=== PATIENT | male | born 1960 | race Caucasian/White ===

== ENCOUNTER 2020-10-18 10:02 | Inpatient (IN) ==
[2020-10-18] MEDS ORDERED: Isovue-370 500 ML BOTTLE IVP ONE (10:55)
[2020-10-18] MEDS ORDERED: Ondansetron 4 MG/2 ML VIAL IVP ONE (10:57)
[2020-10-18 11:23] LABS: Basophils # 0.1 K/mcL (0.0-0.2); Basophils % 0.5 %; Eosinophils # 0.3 K/mcL (0.0-0.6); Eosinophils % 2.2 %; Hematocrit 47.8 % (37.5-50.1); Hemoglobin 15.5 g/dL (12.9-16.9); Immature Granulocytes % 0.4 % (0-4); Lymphocytes # 2.9 K/mcL (0.6-4.6); Lymphocytes % 25.7 %; Mean Corpuscular HGB Conc 32.4 g/dL (31.6-35.5); Mean Corpuscular Hemoglobin 31.8 pg (28.0-33.3); Mean Corpuscular Volume 98.2 fL (83.0-100.0); Mean Platelet Volume 10.2 fL (9.4-12.4); Monocytes # 1.1 K/mcL (0.0-1.3); Neutrophils # 6.9 K/mcL (1.6-8.9); Platelet Count 280 K/mcL (140-400); Red Blood Count 4.87 M/mcL (4.19-5.50); Red Cell Distribution Width 12.9 % (11.5-14.5); Segmented Neutrophils % 61.2 %; White Blood Count 11.2 K/mcL (4.3-11.1)
[2020-10-18 11:33] LABS: BUN/Creatinine Ratio 18 (6-26); Blood Urea Nitrogen 18 mg/dL (6-20); Calcium 9.9 mg/dL (8.6-10.3); Carbon Dioxide 24 mEq/L (23-29); Chloride 98 mEq/L (98-107); Glucose 111 mg/dL (70-105); Osmolality,Calculated 279 (280-300); Potassium 3.1 mEq/L (3.5-5.1); Sodium 133 mEq/L (136-145); Troponin I < 0.03 ng/mL (< 0.04); eGFR For African Americans > 60 (> 60); eGFR For Non-African Americans > 60 (> 60)
[2020-10-18] MEDS ORDERED: Potassium Chloride Elixir 20 MEQ/15 ML UDC PO ONE (11:56)
[2020-10-18 13:47] LABS: INR 1.2; Prothrombin Time 13.5 Seconds (9.4-12.1)
[2020-10-18 13:50] LABS: Activated Partial Thrombo Time 27.8 Seconds (26.0-36.0)
[2020-10-18] MEDS ORDERED: Ringers Solution, Lactated 1,000 ML IVC SCH (14:00)
[2020-10-18 14:09] LABS: Alanine Aminotransferase 78 Units/L (7-52); Albumin 4.5 g/dL (3.5-5.7); Albumin/Globulin Ratio 1.2 (1.1-2.2); Alkaline Phosphatase 138 Units/L (34-104); Amylase 23 Units/L (29-103); Aspartate Amino Transferase 69 Units/L (13-39); Bilirubin,Direct 0.8 mg/dL (0.0-0.2); Bilirubin,Indirect 0.9 mg/dL (0.0-1.0); Bilirubin,Total 1.7 mg/dL (0.3-1.0); Globulin 3.8 g/dL (2.4-3.5); Lipase 20 Units/L (11-82); Total Protein 8.3 g/dL (6.4-8.9)
[2020-10-18] MEDS ORDERED: Ketorolac 15 MG/ML VIAL IVP PRN (14:17)
[2020-10-18] MEDS ORDERED: Ondansetron 4 MG/2 ML VIAL IVP PRN ×2 (14:17→15:16)
[2020-10-18] MEDS ORDERED: CefOXitin 1,000 MG VIAL ONE (14:42)
[2020-10-18] MEDS ORDERED: Isovue-300 50ML VIAL ONE (14:42)
[2020-10-18] MEDS ORDERED: *HR* Midazolam HCl 2 MG/2 ML VIAL ONE (14:57)
[2020-10-18] MEDS ORDERED: *HR* Propofol 200 MG/20 ML VIAL IVP ONE ×2 (14:57→15:00)
[2020-10-18] MEDS ORDERED: *HR* FentaNYL (PF) 100 MCG/2 ML VIAL ONE ×4 (14:57→15:28)
[2020-10-18] MEDS ORDERED: *HR* Rocuronium Bromide 50 MG/5 ML VIAL ONE (14:59)
[2020-10-18] MEDS ORDERED: Lidocaine HCL 4 ML Topical Solution (Laryng-O-Jet Kit Sterile Pak) TP ONE (14:59)
[2020-10-18] MEDS ORDERED: Lidocaine -MPF 2% 2 ML VIAL ONE (14:59)
[2020-10-18] MEDS ORDERED: Ondansetron 4 MG/2 ML VIAL ONE (14:59)
[2020-10-18] MEDS ORDERED: Ipratropium/Albuterol Neb 3 ML IH SCH ×2 (15:00→23:00)
[2020-10-18] MEDS ORDERED: *HR* HYDROmorphone (PF) 1 MG/ML SYRINGE IVP PRN (15:16)
[2020-10-18] MEDS ORDERED: Nitroglycerin 0.4 MG TAB.SUBL SL PRN (15:16)
[2020-10-18] MEDS ORDERED: Albuterol 2.5 MG/3 ML NEBULIZER IH PRN (15:16)
[2020-10-18] MEDS ORDERED: *HR* FentaNYL (PF) 100 MCG/2 ML VIAL IVP PRN (15:16)
[2020-10-18] MEDS ORDERED: Naloxone 0.4 MG/ML INJ IVP PRN (15:16)
[2020-10-18] MEDS: MetroNIDAZOLE 500 MG/100 ML 500 MG/100 ML BAG IVPB SCH ×3 (15:30→22:51)
[2020-10-18] MEDS ORDERED: *HR* Labetalol 20 MG/4 ML SYRINGE IVP ONE (16:15)
[2020-10-18] MEDS ORDERED: CefOXitin 2,000 MG VIAL ONE (16:37)
[2020-10-18] MEDS ORDERED: Neostigmine Methylsulfate 3 MG/3 ML SYRINGE ONE (16:51)
[2020-10-18] MEDS ORDERED: Ketorolac 30 MG/ML VIAL ONE (17:13)
[2020-10-18] MEDS ORDERED: *HR* HYDROMORPHONE 2 MG/ML VIAL ONE (17:15)
[2020-10-18] MEDS: Morphine Sulfate 2 MG/ML SYRINGE IVP PRN (18:16)
[2020-10-18] MEDS: Ringers Solution, Lactated 1,000 ML IVC SCH (18:17)
[2020-10-18] MEDS: Topiramate 100 MG TABLET PO SCH (20:14)
[2020-10-18] MEDS: levETIRAcetam 250 MG TABLET PO SCH (20:15)
[2020-10-18] MEDS: Topiramate 25 MG TABLET PO SCH (20:16)
[2020-10-18] MEDS ORDERED: Topiramate 100 MG TABLET PO SCH ×2 (21:00)
[2020-10-18] MEDS ORDERED: Topiramate 25 MG TABLET PO SCH (21:00)
[2020-10-18] MEDS ORDERED: levETIRAcetam 250 MG TABLET PO SCH (21:00)
[2020-10-18] MEDS ORDERED: *HR* Heparin 5,000 UNIT/ML VIAL SQ SCH (22:00)
[2020-10-18] MEDS: Ketorolac 15 MG/ML VIAL IVP PRN (22:50)
[2020-10-18] MEDS: *HR* Heparin 5,000 UNIT/ML VIAL SQ SCH (22:50)
[2020-10-19] MEDS: *HR* Heparin 5,000 UNIT/ML VIAL SQ SCH ×3 (05:30→20:30)
[2020-10-19] MEDS: Topiramate 100 MG TABLET PO SCH ×2 (08:10→20:30)
[2020-10-19] MEDS: levETIRAcetam 250 MG TABLET PO SCH ×2 (08:11→20:29)
[2020-10-19] MEDS: MetroNIDAZOLE 500 MG/100 ML 500 MG/100 ML BAG IVPB SCH ×2 (08:11→16:31)
[2020-10-19] MEDS: Topiramate 25 MG TABLET PO SCH ×2 (08:11→20:30)
[2020-10-19] MEDS: Divalproex (24 HR) 500 MG TABLET PO SCH (08:11)
[2020-10-19] MEDS ORDERED: Divalproex (24 HR) 500 MG TABLET PO SCH (09:00)
[2020-10-19] MEDS: Morphine Sulfate 2 MG/ML SYRINGE IVP PRN ×2 (10:40→18:51)
[2020-10-19] MEDS: Ondansetron 4 MG/2 ML VIAL IVP PRN (10:41)
[2020-10-19] MEDS: Ringers Solution, Lactated 1,000 ML IVC SCH (12:34)
[2020-10-19] MEDS ORDERED: Nitroglycerin 0.4 MG TAB.SUBL SL PRN (22:26)
[2020-10-20] MEDS: MetroNIDAZOLE 500 MG/100 ML 500 MG/100 ML BAG IVPB SCH ×4 (00:21→23:29)
[2020-10-20] MEDS: Ketorolac 15 MG/ML VIAL IVP PRN ×3 (00:26→23:29)
[2020-10-20 05:23] LABS: Basophils % 0.3 %; Eosinophils # 0.1 K/mcL (0.0-0.6); Eosinophils % 0.9 %; Hematocrit 41.2 % (37.5-50.1); Hemoglobin 13.5 g/dL (12.9-16.9); Immature Granulocytes % 0.5 % (0-4); Lymphocytes # 1.8 K/mcL (0.6-4.6); Lymphocytes % 18.2 %; Mean Corpuscular HGB Conc 32.8 g/dL (31.6-35.5); Mean Corpuscular Hemoglobin 32.1 pg (28.0-33.3); Mean Corpuscular Volume 98.1 fL (83.0-100.0); Mean Platelet Volume 9.9 fL (9.4-12.4); Monocytes # 1.2 K/mcL (0.0-1.3); Monocytes % 11.5 %; Platelet Count 248 K/mcL (140-400); Segmented Neutrophils % 68.6 %; White Blood Count 10.1 K/mcL (4.3-11.1)
[2020-10-20] MEDS: Ringers Solution, Lactated 1,000 ML IVC SCH ×2 (05:34→12:23)
[2020-10-20] MEDS: *HR* Heparin 5,000 UNIT/ML VIAL SQ SCH ×3 (05:38→21:29)
[2020-10-20 05:49] LABS: Alanine Aminotransferase 82 Units/L (7-52); Albumin 3.7 g/dL (3.5-5.7); Albumin/Globulin Ratio 1.2 (1.1-2.2); Alkaline Phosphatase 98 Units/L (34-104); Aspartate Amino Transferase 64 Units/L (13-39); BUN/Creatinine Ratio 17 (6-26); Bilirubin,Total 1.3 mg/dL (0.3-1.0); Blood Urea Nitrogen 12 mg/dL (6-20); Calcium 9.2 mg/dL (8.6-10.3); Carbon Dioxide 22 mEq/L (23-29); Chloride 101 mEq/L (98-107); Globulin 3.2 g/dL (2.4-3.5); Glucose 99 mg/dL (70-105); Osmolality,Calculated 272 (280-300); Potassium 4.2 mEq/L (3.5-5.1); Sodium 131 mEq/L (136-145); Total Protein 6.9 g/dL (6.4-8.9); eGFR For African Americans > 60 (> 60); eGFR For Non-African Americans > 60 (> 60)
[2020-10-20] MEDS: Topiramate 25 MG TABLET PO SCH ×2 (07:29→21:28)
[2020-10-20] MEDS: levETIRAcetam 250 MG TABLET PO SCH ×2 (07:29→21:28)
[2020-10-20] MEDS: Divalproex (24 HR) 500 MG TABLET PO SCH (07:29)
[2020-10-20] MEDS: Topiramate 100 MG TABLET PO SCH ×2 (07:30→21:28)
[2020-10-20] MEDS ORDERED: Ipratropium/Albuterol Neb 3 ML IH PRN ×2 (15:56→16:15)
[2020-10-21] MEDS: *HR* Heparin 5,000 UNIT/ML VIAL SQ SCH ×3 (05:26→21:28)
[2020-10-21] MEDS: MetroNIDAZOLE 500 MG/100 ML 500 MG/100 ML BAG IVPB SCH ×2 (08:24→09:36)
[2020-10-21] MEDS: levETIRAcetam 250 MG TABLET PO SCH ×2 (08:28→21:44)
[2020-10-21] MEDS: Divalproex (24 HR) 500 MG TABLET PO SCH (08:28)
[2020-10-21] MEDS: Topiramate 100 MG TABLET PO SCH ×2 (08:28→21:31)
[2020-10-21] MEDS: Topiramate 25 MG TABLET PO SCH ×2 (08:28→21:31)
[2020-10-21] MEDS ORDERED: Scopolamine Patch 1.5 MG PATCH.TD72 TD ONE (08:48)
[2020-10-21] MEDS ORDERED: Bisacodyl 10 MG RECTAL SUPPOSITORY RC ONE (08:48)
[2020-10-21] MEDS ORDERED: Acetaminophen IV 1,000 MG/100 ML BAG IVPB ONE (08:48)
[2020-10-21] MEDS ORDERED: polyethylene glycoL 3350 17 GM POWD.PACK PO PRN (08:49)
[2020-10-21] MEDS: *HR* OxyCODONE Immed Rel 5 MG TABLET PO PRN (09:22)
[2020-10-21] MEDS: Ketorolac 15 MG/ML VIAL IVP SCH ×3 (09:36→18:46)
[2020-10-21] MEDS: Ondansetron 4 MG/2 ML VIAL IVP PRN (09:36)
[2020-10-21] MEDS ORDERED: Methylnaltrexone 12 MG/0.6 ML SYRINGE SQ STA (12:04)
[2020-10-21] MEDS ORDERED: metroNIDAZOLE 500 MG TABLET PO SCH (15:00)
[2020-10-22] MEDS: MetroNIDAZOLE 500 MG/100 ML 500 MG/100 ML BAG IVPB SCH ×3 (00:49→15:00)
[2020-10-22] MEDS: Ketorolac 15 MG/ML VIAL IVP SCH ×4 (00:50→16:52)
[2020-10-22 03:23] LABS: Hematocrit 38.9 % (37.5-50.1); Mean Corpuscular HGB Conc 33.4 g/dL (31.6-35.5); Mean Corpuscular Hemoglobin 32.2 pg (28.0-33.3); Mean Corpuscular Volume 96.3 fL (83.0-100.0); Mean Platelet Volume 10.2 fL (9.4-12.4); Platelet Count 271 K/mcL (140-400); Red Blood Count 4.04 M/mcL (4.19-5.50); Red Cell Distribution Width 12.8 % (11.5-14.5); White Blood Count 8.2 K/mcL (4.3-11.1)
[2020-10-22 03:42] LABS: BUN/Creatinine Ratio 21 (6-26); Blood Urea Nitrogen 15 mg/dL (6-20); Calcium 8.7 mg/dL (8.6-10.3); Carbon Dioxide 17 mEq/L (23-29); Chloride 104 mEq/L (98-107); Glucose 100 mg/dL (70-105); Osmolality,Calculated 271 (280-300); Potassium 3.9 mEq/L (3.5-5.1); Sodium 130 mEq/L (136-145); eGFR For African Americans > 60 (> 60); eGFR For Non-African Americans > 60 (> 60)
[2020-10-22] MEDS: *HR* Heparin 5,000 UNIT/ML VIAL SQ SCH ×3 (06:27→21:00)
[2020-10-22] MEDS: levETIRAcetam 250 MG TABLET PO SCH (08:13)
[2020-10-22] MEDS: Topiramate 25 MG TABLET PO SCH ×2 (08:14→20:43)
[2020-10-22] MEDS: Divalproex (24 HR) 500 MG TABLET PO SCH (08:14)
[2020-10-22] MEDS: Topiramate 100 MG TABLET PO SCH ×2 (08:14→20:44)
[2020-10-22] MEDS: Metoclopramide 20 MG in 0.9 % Sodium Chloride 50 ML IVPB SCH ×2 (11:38→16:40)
[2020-10-22] MEDS: *HR* OxyCODONE Immed Rel 5 MG TABLET PO PRN ×2 (14:59→20:52)
[2020-10-22] MEDS: *HR* Metoprolol 5 MG/5 ML VIAL IVP SCH (16:52)
[2020-10-23] MEDS: MetroNIDAZOLE 500 MG/100 ML 500 MG/100 ML BAG IVPB SCH ×3 (00:42→16:21)
[2020-10-23] MEDS: *HR* Metoprolol 5 MG/5 ML VIAL IVP SCH ×4 (00:43→17:57)
[2020-10-23] MEDS: Ketorolac 15 MG/ML VIAL IVP SCH ×2 (00:44→05:34)
[2020-10-23] MEDS: Metoclopramide 20 MG in 0.9 % Sodium Chloride 50 ML IVPB SCH (01:01)
[2020-10-23] MEDS: *HR* Heparin 5,000 UNIT/ML VIAL SQ SCH ×3 (05:32→21:47)
[2020-10-23] MEDS: Topiramate 25 MG TABLET PO SCH ×2 (11:00→20:12)
[2020-10-23] MEDS: *HR* OxyCODONE Immed Rel 5 MG TABLET PO PRN ×2 (11:00→16:21)
[2020-10-23] MEDS: Topiramate 100 MG TABLET PO SCH ×2 (11:00→20:12)
[2020-10-23] MEDS: Pantoprazole 40 MG VIAL IVP SCH (11:02)
[2020-10-23] MEDS: Valproic Acid INJ 125 MG in 0.9 % Sodium Chloride 100 ML IVPB SCH ×3 (11:19→23:02)
[2020-10-24] MEDS: *HR* Metoprolol 5 MG/5 ML VIAL IVP SCH ×4 (00:09→18:43)
[2020-10-24] MEDS: MetroNIDAZOLE 500 MG/100 ML 500 MG/100 ML BAG IVPB SCH ×3 (01:30→16:24)
[2020-10-24] MEDS: *HR* Heparin 5,000 UNIT/ML VIAL SQ SCH ×3 (05:27→20:38)
[2020-10-24 06:21] LABS: Hematocrit 38.5 % (37.5-50.1); Hemoglobin 12.5 g/dL (12.9-16.9); Mean Corpuscular HGB Conc 32.5 g/dL (31.6-35.5); Mean Corpuscular Hemoglobin 31.6 pg (28.0-33.3); Mean Corpuscular Volume 97.5 fL (83.0-100.0); Mean Platelet Volume 9.2 fL (9.4-12.4); Platelet Count 328 K/mcL (140-400); Red Blood Count 3.95 M/mcL (4.19-5.50); Red Cell Distribution Width 12.8 % (11.5-14.5); White Blood Count 7.5 K/mcL (4.3-11.1)
[2020-10-24] MEDS: Valproic Acid INJ 125 MG in 0.9 % Sodium Chloride 100 ML IVPB SCH ×4 (07:05→20:13)
[2020-10-24 07:27] LABS: BUN/Creatinine Ratio 13 (6-26); Blood Urea Nitrogen 9 mg/dL (6-20); Calcium 8.4 mg/dL (8.6-10.3); Carbon Dioxide 23 mEq/L (23-29); Chloride 103 mEq/L (98-107); Glucose 121 mg/dL (70-105); Osmolality,Calculated 274 (280-300); Potassium 3.3 mEq/L (3.5-5.1); Sodium 132 mEq/L (136-145); eGFR For African Americans > 60 (> 60); eGFR For Non-African Americans > 60 (> 60)
[2020-10-24] MEDS ORDERED: Isovue-370 500 ML BOTTLE IVP ONE ×2 (08:13→08:29)
[2020-10-24] MEDS: Pantoprazole 40 MG VIAL IVP SCH (09:45)
[2020-10-24] MEDS: Topiramate 25 MG TABLET PO SCH ×2 (09:45→20:38)
[2020-10-24] MEDS: Topiramate 100 MG TABLET PO SCH ×2 (09:45→20:39)
[2020-10-24] MEDS ORDERED: Methylnaltrexone 12 MG/0.6 ML SYRINGE SQ ONE (11:47)
[2020-10-24] MEDS: Metoclopramide 20 MG in 0.9 % Sodium Chloride 50 ML IVPB SCH (15:33)
[2020-10-24] MEDS: *HR* OxyCODONE Immed Rel 5 MG TABLET PO PRN ×2 (16:35→20:38)
[2020-10-25] MEDS: *HR* Metoprolol 5 MG/5 ML VIAL IVP SCH ×4 (00:01→18:24)
[2020-10-25 01:33] LABS: Hematocrit 38.2 % (37.5-50.1); Hemoglobin 12.4 g/dL (12.9-16.9); Mean Corpuscular HGB Conc 32.5 g/dL (31.6-35.5); Mean Corpuscular Hemoglobin 31.6 pg (28.0-33.3); Mean Corpuscular Volume 97.4 fL (83.0-100.0); Mean Platelet Volume 10.2 fL (9.4-12.4); Platelet Count 313 K/mcL (140-400); Red Blood Count 3.92 M/mcL (4.19-5.50)
[2020-10-25 01:51] LABS: BUN/Creatinine Ratio 14 (6-26); Blood Urea Nitrogen 8 mg/dL (6-20); Calcium 8.4 mg/dL (8.6-10.3); Carbon Dioxide 19 mEq/L (23-29); Chloride 105 mEq/L (98-107); Glucose 97 mg/dL (70-105); Osmolality,Calculated 270 (280-300); Potassium 3.5 mEq/L (3.5-5.1); Sodium 131 mEq/L (136-145); eGFR For African Americans > 60 (> 60); eGFR For Non-African Americans > 60 (> 60)
[2020-10-25] MEDS: *HR* OxyCODONE Immed Rel 5 MG TABLET PO PRN ×2 (01:55→16:13)
[2020-10-25] MEDS: Valproic Acid INJ 125 MG in 0.9 % Sodium Chloride 100 ML IVPB SCH ×4 (05:37→18:23)
[2020-10-25] MEDS: *HR* Heparin 5,000 UNIT/ML VIAL SQ SCH ×3 (05:38→22:15)
[2020-10-25] MEDS: Topiramate 100 MG TABLET PO SCH ×2 (07:51→22:08)
[2020-10-25] MEDS: Topiramate 25 MG TABLET PO SCH ×2 (07:51→22:08)
[2020-10-25] MEDS: Pantoprazole 40 MG VIAL IVP SCH (07:51)
[2020-10-25] MEDS: MetroNIDAZOLE 500 MG/100 ML 500 MG/100 ML BAG IVPB SCH ×3 (07:52→16:13)
[2020-10-25] MEDS: Metoclopramide 20 MG in 0.9 % Sodium Chloride 50 ML IVPB SCH ×2 (10:24→18:12)
[2020-10-25] MEDS: Bisacodyl 10 MG RECTAL SUPPOSITORY RC SCH (10:25)
[2020-10-25] MEDS ORDERED: Lidocaine -MPF 1% 5 ML AMPUL INFILT ONE (12:38)
[2020-10-25] MEDS: 0.9 % Sodium Chloride 1,000 ML IVC SCH ×3 (13:08→23:58)
[2020-10-25 13:10] LABS: Alanine Aminotransferase 44 Units/L (7-52); Albumin 3.4 g/dL (3.5-5.7); Albumin/Globulin Ratio 1.2 (1.1-2.2); Alkaline Phosphatase 100 Units/L (34-104); Aspartate Amino Transferase 36 Units/L (13-39); Bilirubin,Direct 0.2 mg/dL (0.0-0.2); Bilirubin,Indirect 0.4 mg/dL (0.0-1.0); Bilirubin,Total 0.6 mg/dL (0.3-1.0); Globulin 2.9 g/dL (2.4-3.5); Magnesium 1.7 mg/dL (1.6-2.6); Total Protein 6.3 g/dL (6.4-8.9)
[2020-10-25] MEDS ORDERED: D10% in Water 500 ML IVC PRN (13:20)
[2020-10-25 15:10] LABS: Triglycerides 195 mg/dL (< 150)
[2020-10-25] MEDS ORDERED: Clinimix E 5%-15% SOLUTION 2,000 ML with MVI, adult with vitamin K 10 ML IVC SCH (17:00)
[2020-10-25] MEDS: Acetaminophen IV 1,000 MG/100 ML BAG IVPB SCH (20:36)
[2020-10-26] MEDS: Valproic Acid INJ 125 MG in 0.9 % Sodium Chloride 100 ML IVPB SCH ×4 (00:33→17:18)
[2020-10-26] MEDS: MetroNIDAZOLE 500 MG/100 ML 500 MG/100 ML BAG IVPB SCH ×3 (00:34→16:25)
[2020-10-26] MEDS: *HR* Metoprolol 5 MG/5 ML VIAL IVP SCH ×4 (00:35→17:17)
[2020-10-26] MEDS: Metoclopramide 20 MG in 0.9 % Sodium Chloride 50 ML IVPB SCH ×2 (00:36→08:57)
[2020-10-26] MEDS: Acetaminophen IV 1,000 MG/100 ML BAG IVPB SCH ×4 (02:54→19:47)
[2020-10-26 03:30] LABS: BUN/Creatinine Ratio 13 (6-26); Blood Urea Nitrogen 7 mg/dL (6-20); Calcium 8.2 mg/dL (8.6-10.3); Carbon Dioxide 20 mEq/L (23-29); Chloride 105 mEq/L (98-107); Glucose 103 mg/dL (70-105); Magnesium 1.7 mg/dL (1.6-2.6); Osmolality,Calculated 274 (280-300); Phosphorous 2.9 mg/dL (2.7-4.5); Potassium 3.4 mEq/L (3.5-5.1); Sodium 133 mEq/L (136-145); eGFR For African Americans > 60 (> 60); eGFR For Non-African Americans > 60 (> 60)
[2020-10-26] MEDS: *HR* Heparin 5,000 UNIT/ML VIAL SQ SCH ×3 (06:13→21:52)
[2020-10-26] MEDS ORDERED: Potassium Chloride 40 MEQ, Lidocaine 1% 2 ML in 0.9 % Sodium Chloride 500 ML IVPB ONE (08:35)
[2020-10-26] MEDS: Bisacodyl 10 MG RECTAL SUPPOSITORY RC SCH (09:03)
[2020-10-26] MEDS: Topiramate 100 MG TABLET PO SCH ×2 (09:20→21:33)
[2020-10-26] MEDS: Topiramate 25 MG TABLET PO SCH ×2 (09:20→21:33)
[2020-10-26] MEDS: Pantoprazole 40 MG VIAL IVP SCH (09:22)
[2020-10-26] MEDS ORDERED: Dextrose Gel 15 GM/37.5 ML TUBE PO PRN ×2 (13:15)
[2020-10-26] MEDS ORDERED: *HR* Dextrose 50 % in Water (Vial) 50 ML VIAL IVP PRN (13:15)
[2020-10-26] MEDS ORDERED: D5% in Water 1,000 ML IVC PRN (13:15)
[2020-10-26] MEDS: 0.9 % Sodium Chloride 1,000 ML IVC SCH (14:38)
[2020-10-26] MEDS: Insulin LISPRO 300 UNITS/3 ML VIAL SUBQ SCH ×2 (16:40→21:33)
[2020-10-26] MEDS ORDERED: Clinimix E 5%-15% SOLUTION 2,000 ML with MVI, adult with vitamin K 10 ML IVC SCH (17:00)
[2020-10-26] MEDS ORDERED: Morphine Sulfate 2 MG/ML SYRINGE IVP PRN (17:16)
[2020-10-27] MEDS: Valproic Acid INJ 125 MG in 0.9 % Sodium Chloride 100 ML IVPB SCH ×4 (01:32→20:24)
[2020-10-27] MEDS: MetroNIDAZOLE 500 MG/100 ML 500 MG/100 ML BAG IVPB SCH ×3 (01:32→15:42)
[2020-10-27] MEDS: *HR* Metoprolol 5 MG/5 ML VIAL IVP SCH ×4 (01:33→17:05)
[2020-10-27] MEDS: Acetaminophen IV 1,000 MG/100 ML BAG IVPB SCH ×4 (01:33→20:44)
[2020-10-27 02:19] LABS: BUN/Creatinine Ratio 10 (6-26); Blood Urea Nitrogen 5 mg/dL (6-20); Calcium 8.4 mg/dL (8.6-10.3); Carbon Dioxide 22 mEq/L (23-29); Chloride 106 mEq/L (98-107); Glucose 101 mg/dL (70-105); Magnesium 1.7 mg/dL (1.6-2.6); Osmolality,Calculated 277 (280-300); Phosphorous 2.4 mg/dL (2.7-4.5); Potassium 3.4 mEq/L (3.5-5.1); Sodium 135 mEq/L (136-145); eGFR For African Americans > 60 (> 60); eGFR For Non-African Americans > 60 (> 60)
[2020-10-27] MEDS: 0.9 % Sodium Chloride 1,000 ML IVC SCH ×2 (04:46→09:54)
[2020-10-27] MEDS: *HR* Heparin 5,000 UNIT/ML VIAL SQ SCH ×3 (06:12→20:24)
[2020-10-27] MEDS: Topiramate 25 MG TABLET PO SCH ×2 (07:37→21:50)
[2020-10-27] MEDS: Bisacodyl 10 MG RECTAL SUPPOSITORY RC SCH (07:37)
[2020-10-27] MEDS: Topiramate 100 MG TABLET PO SCH ×2 (07:37→21:50)
[2020-10-27] MEDS ORDERED: Potassium Chloride 40 MEQ, Lidocaine 1% 2 ML in 0.9 % Sodium Chloride 500 ML IVPB ONE (07:53)
[2020-10-27] MEDS: Pantoprazole 40 MG VIAL IVP SCH (09:41)
[2020-10-27] MEDS: Insulin LISPRO 300 UNITS/3 ML VIAL SUBQ SCH ×4 (09:42→21:50)
[2020-10-27] MEDS ORDERED: Clinimix E 5%-15% SOLUTION 2,000 ML with MVI, adult with vitamin K 10 ML IVC SCH (17:00)
[2020-10-28] MEDS: *HR* Metoprolol 5 MG/5 ML VIAL IVP SCH ×3 (00:13→12:54)
[2020-10-28] MEDS: MetroNIDAZOLE 500 MG/100 ML 500 MG/100 ML BAG IVPB SCH ×2 (00:13→08:00)
[2020-10-28] MEDS: 0.9 % Sodium Chloride 1,000 ML IVC SCH ×2 (00:27→08:02)
[2020-10-28] MEDS: Valproic Acid INJ 125 MG in 0.9 % Sodium Chloride 100 ML IVPB SCH ×3 (02:54→14:44)
[2020-10-28] MEDS: Acetaminophen IV 1,000 MG/100 ML BAG IVPB SCH ×3 (02:55→14:20)
[2020-10-28 04:03] LABS: BUN/Creatinine Ratio 10 (6-26); Blood Urea Nitrogen 5 mg/dL (6-20); Calcium 8.3 mg/dL (8.6-10.3); Carbon Dioxide 22 mEq/L (23-29); Chloride 106 mEq/L (98-107); Glucose 99 mg/dL (70-105); Magnesium 1.8 mg/dL (1.6-2.6); Osmolality,Calculated 279 (280-300); Potassium 3.9 mEq/L (3.5-5.1); Sodium 136 mEq/L (136-145); eGFR For African Americans > 60 (> 60); eGFR For Non-African Americans > 60 (> 60)
[2020-10-28] MEDS: *HR* Heparin 5,000 UNIT/ML VIAL SQ SCH ×3 (06:04→22:01)
[2020-10-28] MEDS: Insulin LISPRO 300 UNITS/3 ML VIAL SUBQ SCH ×4 (07:42→21:56)
[2020-10-28] MEDS: Pantoprazole 40 MG VIAL IVP SCH (08:00)
[2020-10-28] MEDS: Topiramate 100 MG TABLET PO SCH ×2 (09:24→21:55)
[2020-10-28] MEDS: Topiramate 25 MG TABLET PO SCH ×2 (09:24→21:55)
[2020-10-28] MEDS: Bisacodyl 10 MG RECTAL SUPPOSITORY RC SCH (09:24)
[2020-10-28 09:43] LABS: Basophils # 0.1 K/mcL (0.0-0.2); Basophils % 0.7 %; Eosinophils # 0.2 K/mcL (0.0-0.6); Eosinophils % 3.1 %; Hematocrit 35.9 % (37.5-50.1); Immature Granulocytes % 0.8 % (0-4); Lymphocytes # 1.9 K/mcL (0.6-4.6); Lymphocytes % 26.8 %; Mean Corpuscular HGB Conc 29.8 g/dL (31.6-35.5); Mean Corpuscular Hemoglobin 31.8 pg (28.0-33.3); Mean Platelet Volume 9.2 fL (9.4-12.4); Monocytes # 0.5 K/mcL (0.0-1.3); Monocytes % 7.6 %; Neutrophils # 4.3 K/mcL (1.6-8.9); Platelet Count 329 K/mcL (140-400); Red Blood Count 3.36 M/mcL (4.19-5.50); Red Cell Distribution Width 13.2 % (11.5-14.5); White Blood Count 7.1 K/mcL (4.3-11.1)
[2020-10-28 10:36] LABS: Hemoglobin 10.7 g/dL (12.9-16.9); Mean Corpuscular Volume 106.8 fL (83.0-100.0)
[2020-10-28] MEDS: metroNIDAZOLE 500 MG TABLET PO SCH ×2 (16:41→21:55)
[2020-10-28] MEDS ORDERED: Divalproex (24 HR) 500 MG TABLET PO SCH (21:00)
[2020-10-28] MEDS: levETIRAcetam 250 MG TABLET PO SCH (21:54)
[2020-10-29] MEDS ORDERED: *HR* HYDROcodone/Acet 5/325 mg TABLET PO ONE (00:42)
[2020-10-29 05:33] LABS: Basophils # 0.1 K/mcL (0.0-0.2); Basophils % 0.8 %; Eosinophils # 0.3 K/mcL (0.0-0.6); Eosinophils % 3.7 %; Hematocrit 39.8 % (37.5-50.1); Hemoglobin 13.2 g/dL (12.9-16.9); Immature Granulocytes % 1.1 % (0-4); Lymphocytes # 2.6 K/mcL (0.6-4.6); Lymphocytes % 27.9 %; Mean Corpuscular HGB Conc 33.2 g/dL (31.6-35.5); Mean Corpuscular Hemoglobin 32.2 pg (28.0-33.3); Mean Corpuscular Volume 97.1 fL (83.0-100.0); Mean Platelet Volume 9.6 fL (9.4-12.4); Monocytes # 0.6 K/mcL (0.0-1.3); Monocytes % 6.4 %; Neutrophils # 5.5 K/mcL (1.6-8.9); Platelet Count 436 K/mcL (140-400); Segmented Neutrophils % 60.1 %; White Blood Count 9.2 K/mcL (4.3-11.1)
[2020-10-29 05:41] LABS: BUN/Creatinine Ratio 10 (6-26); Blood Urea Nitrogen 7 mg/dL (6-20); Calcium 9.2 mg/dL (8.6-10.3); Carbon Dioxide 27 mEq/L (23-29); Chloride 100 mEq/L (98-107); Glucose 101 mg/dL (70-105); Osmolality,Calculated 278 (280-300); Potassium 3.5 mEq/L (3.5-5.1); Sodium 135 mEq/L (136-145); eGFR For African Americans > 60 (> 60); eGFR For Non-African Americans > 60 (> 60)
[2020-10-29] MEDS: *HR* Heparin 5,000 UNIT/ML VIAL SQ SCH (07:23)
[2020-10-29] MEDS: levETIRAcetam 250 MG TABLET PO SCH (08:32)
[2020-10-29] MEDS: Topiramate 100 MG TABLET PO SCH (08:33)
[2020-10-29] MEDS: Topiramate 25 MG TABLET PO SCH (08:33)
[2020-10-29] MEDS: metroNIDAZOLE 500 MG TABLET PO SCH (08:33)
[2020-10-29] MEDS: Insulin LISPRO 300 UNITS/3 ML VIAL SUBQ SCH ×2 (08:33→11:43)
[2020-10-29] MEDS: Bisacodyl 10 MG RECTAL SUPPOSITORY RC SCH (08:38)
[2020-10-29] MEDS: *HR* OxyCODONE Immed Rel 5 MG TABLET PO PRN (08:50)
[2020-10-29 10:28] VITALS: BP 116/76
== END 2020-10-29 14:39 | disposition home or self-care (01) | DRG 415 ==
LOC: 3ANU 10:02 → EMEROOARM 10:02 → SUATTDRO 13:20 → 3ANU 13:49
PROVIDERS: ADMIT Internal Medicine; ATTEND Internal Medicine